=== PATIENT | female | born 1960 | race American Indian/Alaskan Native ===

== ENCOUNTER 2017-01-31 05:59 | Day surgery (SDC) | payer OTHER ==
[2017-01-31] MEDS ORDERED: VERSED IV ONE (06:41)
[2017-01-31] MEDS ORDERED: WATER FOR IRRIG STERILE IR ONE ×2 (06:41→10:37)
[2017-01-31] MEDS ORDERED: NACL 0.9% 1000 ML 1,000 ML IV SCH (07:00)
--- NOTE | 2017-01-31 07:09 | Anesthesia Day of Surgery ---
Anesthesia Day of Surgery - Day of Surgery Patient Examined: Yes Patient H&P Reviewed: Yes Patient is NPO: Yes
--- NOTE | 2017-01-31 07:09 | Anesthesia Consultation ---
Anesthesia Consult and Med Hx Date of service: 01/31/17 - Airway Anesthetic Teeth Evaluation: Good (has a partial in frotn but says its cemented in) ROM Head & Neck: Adequate Mental/Hyoid Distance: Adequate Mallampati Class: Class II Intubation Access Assessment: Probably Good - Pulmonary Exam CTA: Yes - Cardiac Exam Cardiac Exam: RRR - Pre-Operative Health Status ASA Pre-Surgery Classification: ASA2 Proposed Anesthetic Plan: MAC - Pulmonary Hx Smoking: Yes (quit years ago) - Cardiovascular System Hx Hypertension: Yes - Gastrointestinal Hx Gastroesophageal Reflux Disease: Yes (mucus comes up in the morning, on meds)
[2017-01-31] MEDS ORDERED: DIPRIVAN 10 MG/ML IV ONE ×2 (07:13)
--- NOTE | 2017-01-31 08:28 | Short Stay Summary ---
Short Stay Documentation - Allergies and Medications Current Medications: Allergies No Known Allergies Allergy (Verified 01/30/17 12:59) Home Medications Medication Instructions Recorded Confirmed Last Taken Type AtorvaSTATin 20 mg PO DAILY 01/30/17 01/30/17 01/30/17 History Touchet [place] 1 tab PO DAILY 01/30/17 01/30/17 Unknown History Losartan-Hctz 100-25 mg Tab 1 tab PO DAILY 01/30/17 01/30/17 01/30/17 History Omeprazole 40 mg PO DAILY 01/30/17 01/30/17 01/30/17 History amLODIPine 5 mg PO DAILY 01/30/17 01/31/17 01/17/17 History Active Medications Sodium Chloride (Nacl 0.9% 1000 Ml) 1,000 mls @ 50 mls/hr IV DIRECT ELVIE Last Admin: 01/31/17 07:16 Dose: 50 mls/hr - Brief post op/procedure progress note Date of procedure: 01/31/17 Pre-op diagnosis: 1. GERD 2. Functional dyspepsia 3. Epigastric pain Post-op diagnosis: same (1. GERD 2. Gastritis) Procedure: EGD with biopsy Anesthesia: MAC Findings: as above Surgeon: CHERRY BAER Estimated blood loss: none Pathology: list (1. Antrum) Condition: stable - Disposition Condition at discharge: Stable Disposition: DC-01 TO HOME OR SELFCARE Short Stay Discharge Plan Activity: no restrictions Weight Bearing Status: Full Weight Bearing Diet: regular Follow up with: MARLEY STEWART NP [Primary Care Provider] - 7 Days
[2017-01-31 09:00] VITALS: BP 181/91
--- NOTE | 2017-01-31 09:34 | Post Anesthesia Evaluation ---
- Post Anesthesia Evaluation Patient Participated: Yes Airway Patent: Yes Stable Respiratory Function: Yes Temp > 96.8F: Yes Pain Manageable: Yes Adequeate Hydration: Yes Anesthesia Complications: No Block Receding Appropriately: Not Applicable
== END 2017-01-31 06:00 | disposition home or self-care (01) ==
LOC: GIO 05:59
PROVIDERS: ATTEND Internal Medicine Gastroenterology
DX: K21.9 Gastro-esophageal reflux disease without esophagitis (principal); K29.50 Unspecified chronic gastritis without bleeding; B96.81 Helicobacter pylori [H. pylori] as the cause of diseases classified elsewhere; I10 Essential (primary) hypertension; Z72.89 Other problems related to lifestyle; Z87.891 Personal history of nicotine dependence; Z79.899 Other long term (current) drug therapy; Z98.890 Other specified postprocedural states; Z90.710 Acquired absence of both cervix and uterus
CPT/HCPCS: 43239; 88305; 88342; J2250; J2704; J7030